=== PATIENT | female | born 1955 | race Caucasian/White ===

== ENCOUNTER 2023-03-16 10:06 | Inpatient (IN) | payer OTHER ==
[~2023-03-16] VITALS: Ht 157.5 cm; Wt 58.4 kg
[2023-03-16 10:35] VITALS: PULSE 81; RESP 17; O2SAT 96
[2023-03-16] MEDS ORDERED: fentaNYL CITRATE 100 MCG/2 ML VL IV ONE (11:00)
[2023-03-16 11:38] LABS: Eosinophils % (auto) 1.2 % (0.0-7.0); Lymphocytes # (auto) 0.8 10 ^3/uL (0.4-5.4); Lymphocytes % (auto) 7.3 % (10.0-50.0); Monocytes # (auto) 0.9 10 ^3/uL (0-1.3); Monocytes % (auto) 8.3 % (0.0-12.0); Neutrophils # (auto) 9.2 10 ^3/uL (1.6-8.6); Neutrophils % (auto) 82.2 % (37.0-80.0); White Blood Cell 11.2 10^3/uL (4.4-10.8)
[2023-03-16 11:39] LABS: Basophils # (auto) 0.1 10 ^3/uL (0-0.2); Eosinophils # (auto) 0.1 10 ^3/uL (0-0.8); Hematocrit 40.4 % (36.0-46.0); Hemoglobin 13.6 g/dL (12.2-16.2); Mean Corpuscular Hemoglobin 32.6 pg (28.0-32.0); Mean Corpuscular Hgb Conc. 33.8 g/dL (32.0-36.0); Mean Corpuscular Volume 96.5 fL (80.0-100.0); Red Blood Cells 4.18 10^6/uL (4.0-5.20); Red Cell Distribution Width 12.6 % (11.8-14.3)
[2023-03-16 11:55] LABS: Alanine Aminotransferase 25 U/L (7-40); Albumin 4.4 g/dL (3.2-4.8); Alkaline Phosphatase 72 U/L (46-116); Anion Gap 6 (5-15); Aspartate Aminotransferase 23 U/L (13-40); BUN/Creatinine Ratio 13.5 (10.0-20.0); Bilirubin, Total 0.7 mg/dL (0.2-1.0); Blood Urea Nitrogen 13 mg/dL (9-23); Calcium 10.1 mg/dL (8.5-10.1); Carbon Dioxide 28 mmol/L (20-30); Chloride 107 mmol/L (98-107); Glucose 133 mg/dL (74-106); Potassium 3.1 mmol/L (3.5-5.1); Sodium 141 mmol/L (136-145); Total Protein 6.5 g/dL (5.7-8.2)
[2023-03-16] MEDS ORDERED: LEVO50TA7 PO (13:37)
[2023-03-16] MEDS ORDERED: CYCL-611 PO (13:37)
[2023-03-16] MEDS ORDERED: METF-370 PO (13:37)
[2023-03-16] MEDS ORDERED: BENZ100C97 PO (13:37)
[2023-03-16] MEDS ORDERED: EZET-10 PO (13:37)
[2023-03-16] MEDS ORDERED: ALBU108A5 INH (13:37)
[2023-03-16] MEDS ORDERED: GABA-1250 PO (13:37)
[2023-03-16] MEDS ORDERED: BUSP5TAB51 PO (13:37)
[2023-03-16] MEDS ORDERED: DICL1GEL73 TOP (13:37)
[2023-03-16] MEDS ORDERED: IBUP1TAB5 PO (13:37)
[2023-03-16] MEDS ORDERED: POTASSIUM EFFERVESENT TAB 25 MEQ PO ONE (13:45)
[2023-03-16] MEDS ORDERED: PANTOPRAZOLE 40 MG/10 ML VIAL INJ IV ONE (13:45)
[2023-03-16] MEDS ORDERED: ALBUTEROL SULF 2.5 MG/0.5ML(0.5%) NEB SOLN NEB PRN ×2 (13:45)
[2023-03-16] MEDS: SODIUM CHLORIDE 0.9% 1,000 ML IV SCH (13:45)
[2023-03-16] MEDS ORDERED: NICOTINE 21MG/24 HR TOPICAL PATCH TD ONE (13:45)
[2023-03-16] MEDS ORDERED: DEXTROSE (50%) 50ML SYRG IV PRN (13:45)
[2023-03-16 14:19] LABS: Urine Bacteria NONE SEEN /hpf (None Seen); Urine Blood Negative /uL (Negative); Urine Clarity Clear (Clear); Urine Color Yellow (Yellow); Urine Protein, UAD Negative (Negative); Urine Specific Gravity 1.016 (1.001-1.035); Urine Urobilinogen Normal (Negative); Urine WBC 1 /hpf (0 - 5); Urine pH 5.5 (5.0-8.0)
[2023-03-16 14:44] LABS: INR 0.96 (0.9-1.15); Prothrombin Time 10.1 sec (9.3-11.8)
[2023-03-16] MEDS ORDERED: SODIUM CHLORIDE 0.9% 500 ML IV ONE (14:45)
[2023-03-16 15:00] VITALS: O2SAT 93
[2023-03-16 15:02] LABS: Amphetamine Screen, Urine Neg (NEGATIVE); Barbiturate Scree,Urine Neg (NEGATIVE); Benzodiazephine Screen, Urine Neg (NEGATIVE); Cocaine Screen, Urine Neg (NEGATIVE); Opiate Scree,Urine Neg (NEGATIVE)
[2023-03-16 15:03] LABS: Cannabinoid Screen, Urine Neg (NEGATIVE); Phencyclidine Screen, Urine Neg (NEGATIVE)
[2023-03-16 15:17] VITALS: BP 104/55; PULSE 75; RESP 18; TEMP 98; O2SAT 99
[2023-03-16] MEDS ORDERED: PARO-135 PO (16:43)
[2023-03-16] MEDS ORDERED: LISI-287 PO (16:43)
[2023-03-16 17:00] VITALS: BP 128/74; PULSE 81; RESP 16; TEMP 98.1; O2SAT 98
[2023-03-16] MEDS: InsuLIN REG 1unit/0.01ml Soln (100units/ml) SC SCH ×2 (17:00→22:00)
[2023-03-16] MEDS: ACCU-CHEK COMFORT CURVE STRIP VI SCH ×2 (17:21→22:46)
[2023-03-16 20:00] VITALS: RESP 18; O2SAT 97
[2023-03-16 22:00] VITALS: BP 112/67; PULSE 63; RESP 18; TEMP 98.6; O2SAT 97
[2023-03-16] MEDS: GABAPENTIN 300 MG CAP PO SCH (22:47)
[2023-03-16] MEDS: busPIRone HCL 10 MG TAB PO SCH (22:47)
[2023-03-16] MEDS: HYDROcodone-ACET 5/325MG TAB PO PRN (22:59)
[2023-03-17] VITALS (9 sets, daily range): BP systolic 105–126; BP diastolic 51–77; PULSE 71–81; RESP 16–22; TEMP 98–98.4; O2SAT 93–99
[2023-03-17] MEDS: MORPHINE SULFATE INJ 2 MG/ml SYRG IV PRN ×4 (00:45→21:21)
[2023-03-17] MEDS: SODIUM CHLORIDE 0.9% 1,000 ML IV SCH ×2 (03:25→15:56)
[2023-03-17] MEDS: InsuLIN REG 1unit/0.01ml Soln (100units/ml) SC SCH ×4 (06:30→21:24)
[2023-03-17] MEDS: ACCU-CHEK COMFORT CURVE STRIP VI SCH ×4 (06:31→22:00)
[2023-03-17 07:00] LABS: Basophils # (auto) 0.1 10 ^3/uL (0-0.2); Basophils % (auto) 1.1 % (0.0-2.0); Eosinophils # (auto) 0.3 10 ^3/uL (0-0.8); Eosinophils % (auto) 3.2 % (0.0-7.0); Hematocrit 34.3 % (36.0-46.0); Hemoglobin 11.8 g/dL (12.2-16.2); Lymphocytes # (auto) 1.2 10 ^3/uL (0.4-5.4); Lymphocytes % (auto) 13.5 % (10.0-50.0); Mean Corpuscular Hemoglobin 33.4 pg (28.0-32.0); Mean Corpuscular Hgb Conc. 34.5 g/dL (32.0-36.0); Mean Corpuscular Volume 96.9 fL (80.0-100.0); Monocytes # (auto) 0.9 10 ^3/uL (0-1.3); Monocytes % (auto) 10.6 % (0.0-12.0); Neutrophils # (auto) 6.3 10 ^3/uL (1.6-8.6); Neutrophils % (auto) 71.6 % (37.0-80.0); Red Blood Cells 3.54 10^6/uL (4.0-5.20); Red Cell Distribution Width 12.7 % (11.8-14.3); White Blood Cell 8.8 10^3/uL (4.4-10.8)
[2023-03-17 07:40] LABS: Alanine Aminotransferase 17 U/L (7-40); Alkaline Phosphatase 60 U/L (46-116); Anion Gap 4 (5-15); BUN/Creatinine Ratio 11.1 (10.0-20.0); Blood Urea Nitrogen 8 mg/dL (9-23); Calcium 8.9 mg/dL (8.7-10.4); Carbon Dioxide 27 mmol/L (20-30); Chloride 110 mmol/L (98-107); Glucose 99 mg/dL (74-106); Potassium 3.3 mmol/L (3.5-5.1); Sodium 141 mmol/L (136-145)
[2023-03-17 07:41] LABS: Aspartate Aminotransferase 17 U/L (13-40)
[2023-03-17 07:42] LABS: Bilirubin, Total 0.6 mg/dL (0.2-1.0)
[2023-03-17 08:01] LABS: Albumin 3.9 g/dL (3.2-4.8)
[2023-03-17] MEDS: PANTOPRAZOLE 40 MG/10 ML VIAL INJ IV SCH (09:57)
[2023-03-17] MEDS: LEVOTHYROXINE SODIUM 50 MCG TAB PO SCH (09:57)
[2023-03-17] MEDS: NICOTINE 21MG/24 HR TOPICAL PATCH TD SCH (09:58)
[2023-03-17] MEDS: GABAPENTIN 300 MG CAP PO SCH ×2 (09:58→21:22)
[2023-03-17] MEDS: busPIRone HCL 10 MG TAB PO SCH ×2 (09:58→21:22)
[2023-03-17] MEDS: EZETIMIBE PO SCH (10:00)
[2023-03-18] VITALS (9 sets, daily range): BP systolic 117–150; BP diastolic 68–95; PULSE 57–103; RESP 17–78; TEMP 97.6–98.5; O2SAT 93–98
[2023-03-18] MEDS: SODIUM CHLORIDE 0.9% 1,000 ML IV SCH ×3 (05:45→23:35)
[2023-03-18] MEDS: ACCU-CHEK COMFORT CURVE STRIP VI SCH ×4 (06:12→22:27)
[2023-03-18] MEDS: InsuLIN REG 1unit/0.01ml Soln (100units/ml) SC SCH ×4 (06:12→22:00)
[2023-03-18] MEDS: EZETIMIBE PO SCH (10:00)
[2023-03-18] MEDS: PANTOPRAZOLE 40 MG/10 ML VIAL INJ IV SCH (10:09)
[2023-03-18] MEDS: LEVOTHYROXINE SODIUM 50 MCG TAB PO SCH (10:09)
[2023-03-18] MEDS: GABAPENTIN 300 MG CAP PO SCH ×2 (10:09→22:26)
[2023-03-18] MEDS: NICOTINE 21MG/24 HR TOPICAL PATCH TD SCH (10:10)
[2023-03-18] MEDS: MORPHINE SULFATE INJ 2 MG/ml SYRG IV PRN ×2 (10:11→22:05)
[2023-03-18] MEDS: busPIRone HCL 10 MG TAB PO SCH ×2 (10:12→22:26)
[2023-03-18 17:55] LABS: COVID19 ANTIGEN SOFIA FIA NEGATIVE (NEGATIVE)
[2023-03-18] MEDS: hydrALAZINE HCL 20 MG/ML VL IV PRN (22:03)
[2023-03-19 04:27] VITALS: PULSE 76; RESP 16; TEMP 98.6; O2SAT 95
[2023-03-19] MEDS: InsuLIN REG 1unit/0.01ml Soln (100units/ml) SC SCH ×4 (07:00→21:37)
[2023-03-19] MEDS: ACCU-CHEK COMFORT CURVE STRIP VI SCH ×4 (07:01→21:34)
[2023-03-19 08:00] VITALS: BP 138/75; PULSE 76; RESP 16; TEMP 98.7; O2SAT 94
[2023-03-19] MEDS: PANTOPRAZOLE 40 MG/10 ML VIAL INJ IV SCH (09:37)
[2023-03-19] MEDS: MORPHINE SULFATE INJ 2 MG/ml SYRG IV PRN ×2 (09:38→20:21)
[2023-03-19] MEDS: busPIRone HCL 10 MG TAB PO SCH ×2 (09:38→21:30)
[2023-03-19] MEDS: LEVOTHYROXINE SODIUM 50 MCG TAB PO SCH (09:38)
[2023-03-19] MEDS: GABAPENTIN 300 MG CAP PO SCH ×2 (09:38→21:30)
[2023-03-19] MEDS: NICOTINE 21MG/24 HR TOPICAL PATCH TD SCH (09:39)
[2023-03-19] MEDS: EZETIMIBE PO SCH (10:00)
[2023-03-19 10:48] VITALS: BP 138/75; PULSE 76; RESP 16; TEMP 98.7; O2SAT 94
[2023-03-19 13:29] VITALS: BP 153/93; PULSE 73; RESP 17; TEMP 98; O2SAT 98
[2023-03-19 16:54] VITALS: BP 141/80; PULSE 74; RESP 18; TEMP 98.2; O2SAT 98
[2023-03-19 20:00] VITALS: PULSE 71; RESP 18; O2SAT 95
[2023-03-20] MEDS: SODIUM CHLORIDE 0.9% 1,000 ML IV SCH (01:34)
[2023-03-20 05:00] VITALS: BP 156/71; PULSE 73; RESP 20; TEMP 96.2; O2SAT 92
[2023-03-20] MEDS: InsuLIN REG 1unit/0.01ml Soln (100units/ml) SC SCH ×4 (06:48→21:31)
[2023-03-20] MEDS: ACCU-CHEK COMFORT CURVE STRIP VI SCH ×4 (06:48→21:30)
[2023-03-20 08:00] VITALS: PULSE 85; RESP 16; O2SAT 98
[2023-03-20 08:30] VITALS: BP 166/86; PULSE 85; RESP 16; TEMP 97.5; O2SAT 98
[2023-03-20] MEDS: NICOTINE 21MG/24 HR TOPICAL PATCH TD SCH (09:22)
[2023-03-20] MEDS: hydrALAZINE HCL 20 MG/ML VL IV PRN (09:22)
[2023-03-20] MEDS: MORPHINE SULFATE INJ 2 MG/ml SYRG IV PRN ×2 (09:23→20:41)
[2023-03-20] MEDS: GABAPENTIN 300 MG CAP PO SCH ×2 (09:24→21:29)
[2023-03-20] MEDS: busPIRone HCL 10 MG TAB PO SCH ×2 (09:24→21:29)
[2023-03-20] MEDS: LEVOTHYROXINE SODIUM 50 MCG TAB PO SCH (09:25)
[2023-03-20] MEDS: EZETIMIBE PO SCH (09:25)
[2023-03-20 12:35] VITALS: BP 145/79; PULSE 79; RESP 16; TEMP 97.6; O2SAT 96
[2023-03-20] MEDS: ACETAMINOPHEN 325 MG TAB PO PRN (13:09)
[2023-03-20 16:15] VITALS: BP 146/77; PULSE 81; RESP 17; TEMP 98.5; O2SAT 96
[2023-03-20 22:00] VITALS: BP 161/81; PULSE 82; RESP 16; TEMP 97.6; O2SAT 96
[2023-03-20 22:18] LABS: COVID19 ANTIGEN SOFIA FIA NEGATIVE (NEGATIVE)
[2023-03-21] VITALS (7 sets, daily range): BP systolic 127–168; BP diastolic 77–92; PULSE 77–93; RESP 16–18; TEMP 97.4–98.4; O2SAT 94–99
[2023-03-21] MEDS: hydrALAZINE HCL 20 MG/ML VL IV PRN ×2 (01:05→12:36)
[2023-03-21] MEDS: InsuLIN REG 1unit/0.01ml Soln (100units/ml) SC SCH ×4 (06:12→21:55)
[2023-03-21] MEDS: ACCU-CHEK COMFORT CURVE STRIP VI SCH ×4 (06:12→21:55)
[2023-03-21] MEDS: ACETAMINOPHEN 325 MG TAB PO PRN ×2 (06:16→19:38)
[2023-03-21] MEDS: EZETIMIBE PO SCH (10:00)
[2023-03-21] MEDS: GABAPENTIN 300 MG CAP PO SCH ×2 (10:03→21:55)
[2023-03-21] MEDS: busPIRone HCL 10 MG TAB PO SCH ×2 (10:03→21:55)
[2023-03-21] MEDS: NICOTINE 21MG/24 HR TOPICAL PATCH TD SCH (10:03)
[2023-03-21] MEDS: LEVOTHYROXINE SODIUM 50 MCG TAB PO SCH (10:03)
[2023-03-21] MEDS: HYDROcodone-ACET 5/325MG TAB PO PRN (11:28)
[2023-03-22 05:00] VITALS: BP 148/88; PULSE 82; RESP 18; TEMP 98.2; O2SAT 95
[2023-03-22] MEDS: ACCU-CHEK COMFORT CURVE STRIP VI SCH ×4 (06:50→21:10)
[2023-03-22] MEDS: InsuLIN REG 1unit/0.01ml Soln (100units/ml) SC SCH ×4 (06:50→21:10)
[2023-03-22 08:00] VITALS: PULSE 90; RESP 18; O2SAT 96
[2023-03-22 09:00] VITALS: BP 135/83; PULSE 89; RESP 17; TEMP 98; O2SAT 94
[2023-03-22] MEDS: GABAPENTIN 300 MG CAP PO SCH ×2 (09:31→21:05)
[2023-03-22] MEDS: HYDROcodone-ACET 5/325MG TAB PO PRN (09:32)
[2023-03-22] MEDS: LEVOTHYROXINE SODIUM 50 MCG TAB PO SCH (09:32)
[2023-03-22] MEDS: NICOTINE 21MG/24 HR TOPICAL PATCH TD SCH (09:33)
[2023-03-22] MEDS: busPIRone HCL 10 MG TAB PO SCH ×2 (09:33→21:05)
[2023-03-22] MEDS: EZETIMIBE PO SCH (09:33)
[2023-03-22] MEDS: hydrALAZINE HCL 20 MG/ML VL IV PRN (12:28)
[2023-03-22 12:43] VITALS: BP 165/84; PULSE 79; RESP 17; TEMP 97.9; O2SAT 96
[2023-03-22] MEDS: ONDANSETRON HCL 4 MG/2 ML VIAL IV PRN (13:07)
[2023-03-22 13:25] LABS: Urine Bacteria FEW /hpf (None Seen); Urine Blood Negative /uL (Negative); Urine Clarity HAZY (Clear); Urine Color Yellow (Yellow); Urine Protein, UAD Negative (Negative); Urine Specific Gravity 1.015 (1.001-1.035); Urine Urobilinogen Normal (Negative); Urine WBC 10 /hpf (0 - 5)
[2023-03-22] MEDS: MORPHINE SULFATE INJ 2 MG/ml SYRG IV PRN (14:07)
[2023-03-22 17:00] VITALS: BP 151/84; PULSE 91; RESP 17; TEMP 97.7; O2SAT 97
[2023-03-22] MEDS: ACETAMINOPHEN 325 MG TAB PO PRN (18:10)
[2023-03-22 22:00] VITALS: BP 155/91; PULSE 82; RESP 18; TEMP 97.8; O2SAT 97
[2023-03-23 05:00] VITALS: BP 152/79; PULSE 82; RESP 18; TEMP 97.9; O2SAT 100
[2023-03-23] MEDS: MORPHINE SULFATE INJ 2 MG/ml SYRG IV PRN ×2 (05:29→23:32)
[2023-03-23] MEDS: hydrALAZINE HCL 20 MG/ML VL IV PRN ×2 (05:30→22:07)
[2023-03-23] MEDS: ACCU-CHEK COMFORT CURVE STRIP VI SCH ×4 (06:45→22:06)
[2023-03-23] MEDS: InsuLIN REG 1unit/0.01ml Soln (100units/ml) SC SCH ×4 (06:46→22:00)
[2023-03-23 07:30] VITALS: PULSE 93; RESP 18
[2023-03-23 08:17] VITALS: BP 119/67; PULSE 92; RESP 17; TEMP 98.2; O2SAT 96
[2023-03-23] MEDS: NICOTINE 21MG/24 HR TOPICAL PATCH TD SCH (09:55)
[2023-03-23] MEDS: GABAPENTIN 300 MG CAP PO SCH ×2 (09:56→22:06)
[2023-03-23] MEDS: LEVOTHYROXINE SODIUM 50 MCG TAB PO SCH (09:56)
[2023-03-23] MEDS: busPIRone HCL 10 MG TAB PO SCH (09:56)
[2023-03-23] MEDS: ACETAMINOPHEN 325 MG TAB PO PRN (09:56)
[2023-03-23] MEDS: EZETIMIBE PO SCH (10:00)
[2023-03-23 12:54] VITALS: BP 147/71; PULSE 95; RESP 19; TEMP 98.2; O2SAT 97
[2023-03-23 16:58] VITALS: BP 135/74; PULSE 93; RESP 18; TEMP 98.2; O2SAT 95
[2023-03-23 22:00] VITALS: BP 161/64; PULSE 89; RESP 16; O2SAT 94
[2023-03-23] MEDS: ONDANSETRON HCL 4 MG/2 ML VIAL IV PRN (23:09)
[2023-03-24] VITALS (7 sets, daily range): BP systolic 123–169; BP diastolic 54–94; PULSE 58–95; RESP 16–19; TEMP 97.9–98.5; O2SAT 95–97
[2023-03-24] MEDS: ACCU-CHEK COMFORT CURVE STRIP VI SCH ×4 (06:12→21:53)
[2023-03-24] MEDS: InsuLIN REG 1unit/0.01ml Soln (100units/ml) SC SCH ×4 (06:15→21:56)
[2023-03-24] MEDS: EZETIMIBE PO SCH (10:00)
[2023-03-24] MEDS: NICOTINE 21MG/24 HR TOPICAL PATCH TD SCH (10:20)
[2023-03-24] MEDS: LEVOTHYROXINE SODIUM 50 MCG TAB PO SCH (10:20)
[2023-03-24] MEDS: GABAPENTIN 300 MG CAP PO SCH ×2 (10:20→21:53)
[2023-03-24] MEDS: hydrALAZINE HCL 20 MG/ML VL IV PRN (22:00)
[2023-03-25 05:00] VITALS: BP 147/87; PULSE 96; RESP 19; TEMP 98.5; O2SAT 94
[2023-03-25] MEDS: InsuLIN REG 1unit/0.01ml Soln (100units/ml) SC SCH ×2 (06:21→11:30)
[2023-03-25] MEDS: ACCU-CHEK COMFORT CURVE STRIP VI SCH ×2 (06:22→11:35)
[2023-03-25 08:00] VITALS: PULSE 94; RESP 18; O2SAT 95
[2023-03-25 08:38] VITALS: BP 143/94; PULSE 98; RESP 15; TEMP 98.3; O2SAT 97
[2023-03-25] MEDS: EZETIMIBE PO SCH (10:00)
[2023-03-25] MEDS: ACETAMINOPHEN 325 MG TAB PO PRN (10:13)
[2023-03-25] MEDS: LEVOTHYROXINE SODIUM 50 MCG TAB PO SCH (10:13)
[2023-03-25] MEDS: NICOTINE 21MG/24 HR TOPICAL PATCH TD SCH (10:13)
[2023-03-25] MEDS: GABAPENTIN 300 MG CAP PO SCH (10:13)
[2023-03-25] MEDS ORDERED: LACTULOSE 20Gm/30ML SOLN PO ONE (10:15)
[2023-03-25] MEDS ORDERED: METOCLOPRAMIDE HCL 5MG/ml INJ 2ml VIAL IV ONE (10:30)
[2023-03-25] MEDS: ONDANSETRON HCL 4 MG/2 ML VIAL IV PRN (11:22)
[2023-03-25] MEDS: hydrALAZINE HCL 20 MG/ML VL IV PRN (11:25)
[2023-03-25] MEDS: MORPHINE SULFATE INJ 2 MG/ml SYRG IV PRN (11:28)
[2023-03-25 12:00] VITALS: BP 153/82; PULSE 99; RESP 16
== END 2023-03-25 13:00 | DRG 536 ==
LOC: ER 10:06 → EDBD 10:06 → OVERFLOW 13:35 → EAST 13:35
PROVIDERS: ADMIT Nurse Practitioner Family; ATTEND Family Medicine
DX: S72.111A Displaced fracture of greater trochanter of right femur, initial encounter for closed fracture (principal); I10 Essential (primary) hypertension; E87.6 Hypokalemia; E11.9 Type 2 diabetes mellitus without complications; E03.9 Hypothyroidism, unspecified; F17.210 Nicotine dependence, cigarettes, uncomplicated; G89.29 Other chronic pain; M54.9 Dorsalgia, unspecified; M54.50 Low back pain, unspecified; Z20.822 Contact with and (suspected) exposure to COVID-19; R26.81 Unsteadiness on feet; E78.5 Hyperlipidemia, unspecified; Z60.2 Problems related to living alone; W01.0XXA Fall on same level from slipping, tripping and stumbling without subsequent striking against object, initial encounter; K76.0 Fatty (change of) liver, not elsewhere classified; R29.6 Repeated falls; Z80.1 Family history of malignant neoplasm of trachea, bronchus and lung; Z82.0 Family history of epilepsy and other diseases of the nervous system; Z91.81 History of falling; Y93.89 Activity, other specified; Y92.098 Other place in other non-institutional residence as the place of occurrence of the external cause; Y99.8 Other external cause status
CPT/HCPCS: 36415; 70450; 71045; 74176; 80053; 80307; 81001; 82962; 83036; 83605; 83735; 84132; 84443; 84484; 85025; 85610; 86850; 86900; 86901; 87040; 87077; 87086; 87186; 87426; 93005; 93306; 97110; 97116; 97163; 97530; C9113; G0378; J1815; J2405

== ENCOUNTER 2023-09-11 18:14 | Emergency (ER) | payer MEDICARE, MEDICAID ==
[~2023-09-11] VITALS: Ht 157.5 cm; Wt 50.0 kg
[~2023-09-11 18:14] MED LIST: BUSP5TAB51 PO; CYCL-611 PO; DICL1GEL73 TOP; EZET-10 PO; GABA-1250 PO; IBUP1TAB5 PO; LEVO50TA7 PO; LISI-287 PO; METF-370 PO; PARO-135 PO
[2023-09-11 20:20] LABS: Basophils # (auto) 0.2 10 ^3/uL (0-0.2); Eosinophils # (auto) 0.2 10 ^3/uL (0-0.8); Lymphocytes # (auto) 1.6 10 ^3/uL (0.4-5.4); Nucleated Red Blood Cells % 0.1 %
[2023-09-11 20:22] LABS: Basophils % (auto) 2.4 % (0.0-2.0); Eosinophils % (auto) 2.6 % (0.0-7.0); Hematocrit 41.8 % (36.0-46.0); Hemoglobin 14.1 g/dL (12.2-16.2); Lymphocytes % (auto) 21.4 % (10.0-50.0); Mean Corpuscular Hemoglobin 32.1 pg (28.0-32.0); Mean Corpuscular Hgb Conc. 33.8 g/dL (32.0-36.0); Monocytes # (auto) 0.6 10 ^3/uL (0-1.3); Monocytes % (auto) 7.5 % (0.0-12.0); Neutrophils # (auto) 4.8 10 ^3/uL (1.6-8.6); Neutrophils % (auto) 66.1 % (37.0-80.0); Red Cell Distribution Width 13.4 % (11.8-14.3); White Blood Cell 7.3 10^3/uL (4.4-10.8)
[2023-09-11 20:33] LABS: Urine Bacteria FEW /hpf (None Seen); Urine Blood Negative /uL (Negative); Urine Clarity Turbid (Clear); Urine Color Yellow (Yellow); Urine Hyaline Cast FEW /lpf (0 - 2); Urine Mucus FEW (None Seen); Urine Protein, UAD TRACE (Negative); Urine Specific Gravity 1.029 (1.001-1.035); Urine Urobilinogen Normal (Negative); Urine WBC 4 /hpf (0 - 5); Urine pH 5.5 (5.0-9.0)
[2023-09-11 20:46] LABS: Alanine Aminotransferase 17 U/L (7-40); Albumin 4.7 g/dL (3.2-4.8); Alkaline Phosphatase 79 U/L (46-116); Anion Gap 11 (5-15); Aspartate Aminotransferase 12 U/L (13-40); BUN/Creatinine Ratio 21.6 (10.0-20.0); Blood Urea Nitrogen 19 mg/dL (9-23); Calcium 11.1 mg/dL (8.7-10.4); Carbon Dioxide 20 mmol/L (20-30); Chloride 109 mmol/L (98-107); Glucose 99 mg/dL (74-106); Potassium 4.3 mmol/L (3.5-5.1); Sodium 140 mmol/L (136-145)
[2023-09-11 20:47] LABS: Bilirubin, Total 0.3 mg/dL (0.2-1.0); Total Protein 7.2 g/dL (5.7-8.2)
[2023-09-11] MEDS ORDERED: LOPE1TAB9 PO (23:29)
[2023-09-12] MEDS: LOPERAMIDE HCL 2 MG CAP/TAB PO ONE (00:16)
[2023-09-12] MEDS: SODIUM CHLORIDE 0.9% 1,000 ML IV ONE (00:16)
[2023-09-12 00:22] VITALS: BP 139/74; PULSE 76; RESP 16; O2SAT 98
== END 2023-09-12 00:23 ==
LOC: ER 18:14 → EDBD 18:14 → ER 09-12 00:23
DX: R19.7 Diarrhea, unspecified (principal); R53.1 Weakness; Z79.1 Long term (current) use of non-steroidal anti-inflammatories (NSAID); Z79.84 Long term (current) use of oral hypoglycemic drugs; Z79.899 Other long term (current) drug therapy
CPT/HCPCS: 36415; 80053; 81001; 85025